=== PATIENT | female | born 1935 | race African-American/Black ===

== ENCOUNTER 2017-09-17 14:11 | Inpatient (IN) | payer MEDICARE, MEDICAID ==
[~2017-09-17] VITALS: Ht 152.4 cm; Wt 51.3 kg
[2017-09-17 14:32] VITALS: BP 98/54
[2017-09-17 16:05] LABS: BASOPHILS % (AUTO) 1.1 % (0.0-2.0); EOSINOPHILS % (AUTO) 0.9 % (0.0-3.0); LYMPHOCYTES % (AUTO) 21.6 % (20.0-45.0); MEAN CORPUSCULAR HEMOGLOBIN 27.8 PG (27.0-31.0); MEAN CORPUSCULAR HGB CONC 32.1 G/DL (32.0-36.0); MEAN CORPUSCULAR VOLUME 87 FL (80-99); MEAN PLATELET VOLUME 7.7 FL (6.5-10.1); NEUTROPHILS % (AUTO) 67.4 % (45.0-75.0); PLATELET COUNT 213 K/UL (150-450); RED BLOOD COUNT 4.61 M/UL (4.20-5.40); RED CELL DISTRIBUTION WIDTH 12.2 % (11.6-14.8); WHITE BLOOD COUNT 6.2 K/UL (4.8-10.8)
[2017-09-17 16:08] LABS: APPEARANCE,URINE CLEAR; KETONES,URINE NEGATIVE (NEGATIVE); LEUKOCYTE ESTERASE ,URINE NEGATIVE (NEGATIVE); NITRITE,URINE NEGATIVE (NEGATIVE); PH,URINE 5 (4.5-8.0); PROTEIN,URINE 2+ (NEGATIVE); UROBILINOGEN,URINE NORMAL MG/DL (0.0-1.0)
[2017-09-17 16:10] LABS: ANION GAP 10 mmol/L (5-15); CALCIUM 6.9 MG/DL (8.5-10.1); CARBON DIOXIDE 22 MMOL/L (21-32); CHLORIDE 112 MMOL/L (98-107); CREATININE 2.1 MG/DL (0.55-1.30); POTASSIUM 3.6 MMOL/L (3.5-5.1); SODIUM 144 MMOL/L (136-145)
[2017-09-17 16:23] LABS: ALANINE AMINOTRANSFERASE 19 U/L (12-78); ALBUMIN/GLOBULIN RATIO 0.7 (1.0-2.7); ASPARTATE AMINO TRANSFERASE 32 U/L (15-37); CKMB 10.3 NG/ML (0.0-3.6); TOTAL PROTEIN 4.9 G/DL (6.4-8.2)
[2017-09-17] MEDS ORDERED: QUINAPRIL HCL20 MG PO (16:27)
[2017-09-17] MEDS ORDERED: AMLODIPINE BES2.5 MG ORAL (16:27)
[2017-09-17 16:29] LABS: BACTERIA,URINE FEW /HPF; SQUAMOUS EPITHELIAL CELL,UR FEW /LPF (NONE/OCC); WBC,URINE 0-2 /HPF (0 - 2)
[2017-09-17 16:32] VITALS: BP 103/69
--- NOTE | 2017-09-17 16:45 | Emergency Room Report ---
History of Present Illness General Chief Complaint: Generalized Weakness Source: Patient, Family Member Present Illness HPI 82-year-old female brought in with son from home for weakness of one week. As per weakness patient's son states low energy. Patient has not been eating or drinking enough water. Has history of high blood pressure takes 2 medications, no other medical problems. Denies chest pain, shortness of breath, abdominal pain, urinary complaints, fever or chills. Denies previous stroke, heart attack. Patient History Past Medical History: HTN Past Surgical History: none Social History: Denies: smoking, alcohol use, drug use Last Menstrual Period: na Immunizations: UTD Reviewed Nursing Documentation: PMH: Agreed, PSxH: Agreed Nursing Documentation-PMH Past Medical History: No History, Except For Hx Cardiac Problems: Yes - hjypotension Hx Pacemaker: Yes History Of Psychiatric Problem: Yes - alzheimers Review of Systems All Other Systems: negative except mentioned in HPI Physical Exam Vital Signs Date Time Temp Pulse Resp B/P (MAP) Pulse Ox O2 Delivery O2 Flow Rate FiO2 09/17/17 14:22 98.1 88 20 98/54 97 Room Air Sp02 EP Interpretation: reviewed, normal General Appearance: normal inspection, well appearing, no apparent distress, alert, GCS 15, non-toxic Head: normocephalic, atraumatic Eyes: bilateral eye PERRL, bilateral eye EOMI ENT: normal ENT inspection, hearing grossly normal, normal voice Neck: normal inspection, full range of motion, supple, no bony tend Respiratory: normal inspection, lungs clear, normal breath sounds, no respiratory distress, no retraction, no wheezing Cardiovascular #1: regular rate, rhythm, no edema Gastrointestinal: normal inspection, normal bowel sounds, non tender, soft, no guarding, no hernia Genitourinary: no CVA tenderness Musculoskeletal: normal inspection, back normal, normal range of motion, Dary' s Sign negative Neurologic: normal inspection, alert, oriented x3, responsive, clam treader III-XII nml as tested, motor strength/tone normal, speech normal Psychiatric: normal inspection, judgement/insight normal, mood/affect normal Skin: normal inspection, normal color, no rash Medical Decision Making Medicare Attestation I Francisco Javier Dominguez MD hereby attest that the medical record entry for date of service, 09/17/2017 accurately reflects signatures/notations that I made in my capacity as MD when I treated/diagnosed the above listed Medicare beneficiary. I attest that this information is true, accurate and complete to the best of my knowledge. I understand that any falsification, omission, or concealment of material fact may subject me to administrative, civil, or criminal liability. This patient warrants hospital admission for extreme of age and has a condition that cannot be treated as outpatient. Diagnostic Impression: Primary Impression: Episode of generalized weakness Additional Impressions: RACHELE (acute kidney injury) Dehydration ER Course 82-year-old female with weakness likely due to dehydration Lab significant only for acute kidney injury She otherwise well-appearing, has dementia Complaints Labs otherwise normal No UTI Was started on gentle hydration and ER Endorsed to Dr. Yarbrough for panel admission for [facility] bed at 4:45 PM EKG Diagnostic Results Rate: other - ventricular paced ST Segments: no acute changes ASA given to the pt in ED: No Rhythm Strip Diag. Results EP Interpretation: yes Rate: 77 Rhythm: NSR, no PVC's, no ectopy Chest X-Ray Diagnostic Results Chest X-Ray Diagnostic Results : Chest X-Ray Ordered: Yes # of Views/Limited/Complete: 1 View Indication: Other - weakness EP Interpretation: Yes Interpretation: no consolidation, no effusion, no pneumothorax, no acute cardiopulmonary disease Impression: No acute disease Electronically Signed by: Dr Francisco Javier Dominguez MD Last Vital Signs Date Time Temp Pulse Resp B/P (MAP) Pulse Ox O2 Delivery O2 Flow Rate FiO2 09/17/17 16:32 98.4 73 16 103/69 100 Room Air Status: improved Disposition: ADMITTED INPATIENT Condition: Stable Referrals: NON PHYSICIAN (PCP) FRANCISCO JAVIER DOMINGUEZ M.D. Sep 17, 2017 16:44
--- NOTE | 2017-09-17 16:47 | Diagnostic Imaging Report ---
Indication: Cough Technique: One view of the chest Comparison: none Findings: Lungs and pleural spaces are clear. Heart size is normal. There is a left chest bifocal pacemaker. There is cervical spine fusion hardware noted Impression: No acute process
[2017-09-17 17:49] VITALS: BP 121/71
[2017-09-17 18:37] VITALS: BP 130/58
[2017-09-17] MEDS ORDERED: LORazepam Inj 2mg/ml 1ml IV PRN (19:30)
[2017-09-17] MEDS ORDERED: Morphine Sulfate 2mg/ml Inj IVP PRN (19:30)
[2017-09-17] MEDS ORDERED: Miralax 17gm pkt ORAL PRN (19:30)
[2017-09-17] MEDS ORDERED: Mylanta II UD 30ml ORAL PRN (19:30)
[2017-09-17] MEDS ORDERED: Zolpidem 5mg tab ORAL PRN (19:30)
[2017-09-17 20:00] VITALS: BP 109/73
[2017-09-17 21:02] LABS: ALANINE AMINOTRANSFERASE 28 U/L (12-78); ALBUMIN/GLOBULIN RATIO 0.8 (1.0-2.7); ANION GAP 8 mmol/L (5-15); APPEARANCE,URINE CLEAR; ASPARTATE AMINO TRANSFERASE 47 U/L (15-37); CALCIUM 9.3 MG/DL (8.5-10.1); CARBON DIOXIDE 29 MMOL/L (21-32); CHLORIDE 104 MMOL/L (98-107); CREATININE 2.5 MG/DL (0.55-1.30); FREE T3 2.2 pg/mL (2.3-4.2); KETONES,URINE NEGATIVE (NEGATIVE); LEUKOCYTE ESTERASE ,URINE 1+ (NEGATIVE); MAGNESIUM 2.6 MG/DL (1.8-2.4); NITRITE,URINE NEGATIVE (NEGATIVE); PH,URINE 5 (4.5-8.0); PHOSPHORUS 4.2 MG/DL (2.5-4.9); POTASSIUM 4.7 MMOL/L (3.5-5.1); PROTEIN,URINE 1+ (NEGATIVE); SODIUM 141 MMOL/L (136-145); TOTAL PROTEIN 6.5 G/DL (6.4-8.2); URIC ACID 6.7 MG/DL (2.6-7.2); UROBILINOGEN,URINE NORMAL MG/DL (0.0-1.0)
[2017-09-17 21:11] LABS: BACTERIA,URINE FEW /HPF; OSMOLALITY SERUM 326 mOsm/kg (297-317); SQUAMOUS EPITHELIAL CELL,UR FEW /LPF (NONE/OCC)
[2017-09-17] MEDS: Heparin 5000 units/ml inj SUBQ SCH (21:55)
[2017-09-18] VITALS: BP 123/74
[2017-09-18 04:15] VITALS: BP 137/69
[2017-09-18 08:00] VITALS: BP 120/73
[2017-09-18] MEDS: Heparin 5000 units/ml inj SUBQ SCH ×2 (09:15→21:33)
[2017-09-18 09:44] LABS: BASOPHILS % (AUTO) 1.4 % (0.0-2.0); EOSINOPHILS % (AUTO) 1.3 % (0.0-3.0); LYMPHOCYTES % (AUTO) 21.9 % (20.0-45.0); MEAN CORPUSCULAR HEMOGLOBIN 27.2 PG (27.0-31.0); MEAN CORPUSCULAR HGB CONC 31.5 G/DL (32.0-36.0); MEAN CORPUSCULAR VOLUME 86 FL (80-99); MEAN PLATELET VOLUME 7.4 FL (6.5-10.1); MONOCYTES % (AUTO) 7.8 % (1.0-10.0); NEUTROPHILS % (AUTO) 67.5 % (45.0-75.0); PLATELET COUNT 209 K/UL (150-450); RED BLOOD COUNT 4.18 M/UL (4.20-5.40); RED CELL DISTRIBUTION WIDTH 12.1 % (11.6-14.8); WHITE BLOOD COUNT 4.4 K/UL (4.8-10.8)
[2017-09-18 09:57] LABS: ALANINE AMINOTRANSFERASE 25 U/L (12-78); ALBUMIN/GLOBULIN RATIO 0.6 (1.0-2.7); ANION GAP 7 mmol/L (5-15); ASPARTATE AMINO TRANSFERASE 40 U/L (15-37); CALCIUM 9.1 MG/DL (8.5-10.1); CARBON DIOXIDE 29 MMOL/L (21-32); CHLORIDE 107 MMOL/L (98-107); CHOLESTEROL 163 MG/DL (< 200); CHOLESTEROL/HDL RATIO 2.5 (3.3-4.4); CREATININE 2.1 MG/DL (0.55-1.30); POTASSIUM 4.4 MMOL/L (3.5-5.1); SODIUM 143 MMOL/L (136-145); THYROID STIMULATING HORMONE 0.101 uiU/mL (0.358-3.740); TOTAL PROTEIN 6.5 G/DL (6.4-8.2)
[2017-09-18 10:28] LABS: HEMOGLOBIN A1C 6.1 % (4.3-6.0)
--- NOTE | 2017-09-18 10:40 | Diagnostic Imaging Report ---
Indication: Abnormal renal function tests Technique: Grayscale and duplex images of the kidneys, retroperitoneum, and bladder were obtained. Comparison:None Findings: Right kidney measures 7.7 cm in length. Left kidney measures 7.7 cm in length. Both kidneys demonstrate increased echogenicity. No hydronephrosis. There are bilateral renal cysts.. Normal inferior vena cava. Bladder is nearly empty, contains a Miller catheter. Impression: Small echogenic kidneys, consistent with medical renal disease Negative for hydronephrosis Bilateral renal cysts incidentally noted. Empty bladder with a Miller catheter
--- NOTE | 2017-09-18 11:35 | Wound Care Consultation ---
Wound Assessment Wound Assessment #1: Wound Number: 1 Wound Present on Admission: Yes New Wound: No Status Change of Wound: No Wound Location Body Site Modif: mid Wound Location Body Site: other - Sacrococcygeal Wound Type: pressure ulcer Kodi Test: Does not Kodi Pressure Ulcer Stage: Unstageable Wound Thickness: Full Thickness Wound Length: 11.5 Wound Width: 9.5 Wound Depth: utd Percent of Wound Falcon/Red: 10 Percent of Wound Bed Yellow/Wh: 50 Percent of Wound Purple/Maroon: 40 Wound Drainage Description: Serosanguineous Wound Drainage Amount: Moderate Wound Drainage Odor: None/Absent Tissue Surrounding Wound: DTI maroon in color Wound General Appearance: Reddened - yellow, Maroon, Draining Wound Assessment #2: Wound Number: 2 Wound Present on Admission: Yes New Wound: No Status Change of Wound: No Wound Location Body Site: perineal area Wound Type: chemical burn Kodi Test: Does not Kodi Percent of Wound Falcon/Red: 100 Wound Drainage Amount: None Wound Drainage Odor: None/Absent Tissue Surrounding Wound: Erythemic Wound General Appearance: Reddened Wound Comment #1 Sacrococcygeal unstageable pressure ulcer #2 Chemical burn on perineal area #3 Left lower leg with hemosiderin staining pigmentation #4 Check left 5th lateral toe callus formation Recommendation -Local wound care per protocol -Keep clean and dry -Turn and reposition -Optimize nutrition -Low air loss mattress -Heel protector on both heels -Offload both heels -Assess and f/u accordingly for any changes DOMINIC OLVERA RN Sep 18, 2017 11:35
[2017-09-18 12:00] VITALS: BP 114/78
--- NOTE | 2017-09-18 14:20 | Cardiology Report ---
APPROVED REPORT EKG Measurement Heart [id number] with v pacing
--- NOTE | 2017-09-18 15:02 | Consultation ---
Consult Note Consult Note asked to eval for renal failure 82-year-old female brought in with son from home for weakness of one week. As per weakness patient's son states low energy. Patient has not been eating or drinking enough water. Has history of high blood pressure takes 2 medications, no other medical problems. Denies chest pain, shortness of breath, abdominal pain, urinary complaints, fever or chills. Denies previous stroke, heart attack. Past Medical History: HTN Past Medical History: No History, Except For Hx Cardiac Problems: Yes - hypertension Hx Pacemaker: Yes History Of Psychiatric Problem: Yes - alzheimers examined- data reviewed Assessment/Plan Renal failure- appears prerenal. ? underlying CKD- DURAN : Small echogenic kidneys, consistent with medical renal disease Negative for hydronephrosis Bilateral renal cysts incidentally noted. Anemia Mild elevation A1c HTN Pacer OBS Plan: Hydrate- Anemia greene- Keep BP in check monitor renal parameters- per orders SHELBY DEY Sep 18, 2017 15:02
[2017-09-18 16:00] VITALS: BP 134/76
--- NOTE | 2017-09-18 18:29 | History and Physical ---
History of Present Illness General Date patient seen: Sep 17, 2017 Reason for Hospitalization: Generalized Weakness Present Illness HPI 82-year-old female with hx of HTN, psychosis brought in with son from home for weakness and low energy for one week. Denies chest pain, shortness of breath, abdominal pain, urinary complaints, fever or chills. Denies previous stroke, heart attack. Pt was diagnosed to have acute renal failure and admitted for further work up. Allergies: Coded Allergies: No Known Allergies (Unverified , 09/17/17) Medication History Scheduled Amlodipine Besylate* (Amlodipine Besylate*), 2.5 MG ORAL DAILY, (Reported) Miscellaneous Medications Quinapril Hcl (Quinapril Hcl), 20 MG PO, (Reported) Patient History Healthcare decision maker Resuscitation status Advanced Directive on File No Past Medical/Surgical History Past Medical/Surgical History: (1) Schizo-affective psychosis Review of Systems Constitutional: Reports: malaise, weakness Physical Exam General Appearance: cachetic Lines, tubes and drains: peripheral HEENT: normocephalic, atraumatic Neck: non-tender, normal alignment Respiratory/Chest: chest wall non-tender, lungs clear, normal breath sounds Cardiovascular/Chest: normal peripheral pulses, normal rate Abdomen: normal bowel sounds, non tender Genitourinary/Rectal: normal genital exam Extremities: normal range of motion Skin Exam: normal pigmentation Neurologic: electrical controls technician II-XII grossly normal Last 24 Hour Vital Signs Date Time Temp Pulse Resp B/P (MAP) Pulse Ox O2 Delivery O2 Flow Rate FiO2 09/18/17 16:00 98.1 75 19 134/76 100 Room Air 09/18/17 12:00 97.0 77 20 114/78 89 09/18/17 08:00 97.9 75 20 120/73 86 09/18/17 04:15 96.5 74 19 137/69 92 Room Air 09/18/17 04:00 Room Air 09/18/17 00:00 Room Air 09/18/17 00:00 98.2 57 20 123/74 100 Room Air 09/17/17 20:00 98.2 77 20 109/73 99 Room Air 09/17/17 20:00 Room Air 09/17/17 18:37 97.7 95 18 130/58 97 Laboratory Tests Test 09/17/17 20:15 09/18/17 09:20 Urine Color Pale yellow Urine Appearance Clear Urine pH 5 (4.5-8.0) Urine Specific [place] 1.010 (1.005-1.035) Urine Protein 1+ (NEGATIVE) H Urine Glucose (UA) Negative (NEGATIVE) Urine Ketones Negative (NEGATIVE) Urine Occult Blood 4+ (NEGATIVE) H Urine Nitrite Negative (NEGATIVE) Urine Bilirubin Negative (NEGATIVE) Urine Urobilinogen Normal MG/DL (0.0-1.0) Urine Leukocyte Esterase 1+ (NEGATIVE) H Urine RBC 5-10 /HPF (0 - 2) H Urine WBC 2-4 /HPF (0 - 2) Urine Squamous Epithelial Cells Few /LPF (NONE/OCC) Urine Bacteria Few /HPF (NONE) Urine Eosinophils None seen Urine Osmolality 397 mOsm/kg (429-449) L Urine Random Sodium 34 MEQ/L (20-110) Urine Random Chloride 47 mmol/L (55-125) L Urine Potassium Timed 27 mmol/L (12-62) Sodium Level 141 MMOL/L (136-145) 143 MMOL/L (136-145) Potassium Level 4.7 MMOL/L (3.5-5.1) 4.4 MMOL/L (3.5-5.1) Chloride Level 104 MMOL/L (98-107) 107 MMOL/L (98-107) Carbon Dioxide Level 29 MMOL/L (21-32) 29 MMOL/L (21-32) Anion Gap 8 mmol/L (5-15) 7 mmol/L (5-15) Blood Urea Nitrogen 94 mg/dL (7-18) H 82 mg/dL (7-18) H Creatinine 2.5 MG/DL (0.55-1.30) H 2.1 MG/DL (0.55-1.30) H Estimat Glomerular Filtration Rate mL/min (>60) mL/min (>60) Glucose Level 108 MG/DL (74-106) H 165 MG/DL (74-106) H Osmolality 326 mOsm/kg (297-317) H Uric Acid 6.7 MG/DL (2.6-7.2) Calcium Level 9.3 MG/DL (8.5-10.1) # 9.1 MG/DL (8.5-10.1) Phosphorus Level 4.2 MG/DL (2.5-4.9) Magnesium Level 2.6 MG/DL (1.8-2.4) H Total Bilirubin 0.4 MG/DL (0.2-1.0) 0.3 MG/DL (0.2-1.0) Aspartate Amino Transf (AST/SGOT) 47 U/L (15-37) H 40 U/L (15-37) H Alanine Aminotransferase (ALT/SGPT) 28 U/L (12-78) 25 U/L (12-78) Alkaline Phosphatase 80 U/L (46-116) 69 U/L (46-116) Total Creatine Kinase 557 U/L (26-308) H Total Protein 6.5 G/DL (6.4-8.2) # 6.5 G/DL (6.4-8.2) Albumin 2.8 G/DL (3.4-5.0) L 2.5 G/DL (3.4-5.0) L Globulin 3.7 g/dL 4.0 g/dL Albumin/Globulin Ratio 0.8 (1.0-2.7) L 0.6 (1.0-2.7) L Free Thyroxine 1.40 NG/DL (0.76-1.46) Free Triiodothyronine 2.2 pg/mL (2.3-4.2) L Cortisol Pending White Blood Count 4.4 K/UL (4.8-10.8) L Red Blood Count 4.18 M/UL (4.20-5.40) L Hemoglobin 11.3 G/DL (12.0-16.0) L Hematocrit 36.0 % (37.0-47.0) L Mean Corpuscular Volume 86 FL (80-99) Mean Corpuscular Hemoglobin 27.2 PG (27.0-31.0) Mean Corpuscular Hemoglobin Concent 31.5 G/DL (32.0-36.0) L Red Cell Distribution Width 12.1 % (11.6-14.8) Platelet Count 209 K/UL (150-450) Mean Platelet Volume 7.4 FL (6.5-10.1) Neutrophils (%) (Auto) 67.5 % (45.0-75.0) Lymphocytes (%) (Auto) 21.9 % (20.0-45.0) Monocytes (%) (Auto) 7.8 % (1.0-10.0) Eosinophils (%) (Auto) 1.3 % (0.0-3.0) Basophils (%) (Auto) 1.4 % (0.0-2.0) Hemoglobin A1c 6.1 % (4.3-6.0) H Triglycerides Level 33 MG/DL (30-150) Cholesterol Level 163 MG/DL (< 200) LDL Cholesterol 91 mg/dL (<100) HDL Cholesterol 66 MG/DL (40-60) H Cholesterol/HDL Ratio 2.5 (3.3-4.4) L Thyroid Stimulating Hormone (TSH) 0.101 uiU/mL (0.358-3.740) Height (Feet): 5 Weight (Pounds): 113 Medications Current Medications Medications (Trade) Dose Ordered Sig/Ty Route PRN Reason Start Time Stop Time Status Last Admin Dose Admin Acetaminophen (Tylenol) 650 mg Q4H PRN ORAL fever 09/17/17 19:30 10/17/17 19:29 Dextrose (Dextrose 50%) STAT PRN IV Hypoglycemia 09/17/17 19:30 10/17/17 19:29 Heparin Sodium (Porcine) (Heparin 5000 units/ml) 5,000 units EVERY 12 HOURS SUBQ 09/17/17 21:00 10/17/17 20:59 09/18/17 09:15 Lansoprazole (Prevacid) 30 mg DAILY ORAL 09/18/17 15:30 10/18/17 15:29 09/18/17 17:14 Lorazepam (Ativan 2mg/ml 1ml) 0.5 mg Q4H PRN IV For Anxiety 09/17/17 19:30 09/24/17 19:29 Morphine Sulfate (Morphine Sulfate) 1 mg Q4H PRN IVP Moderate to Severe Pain (4-10) 09/17/17 19:30 09/24/17 19:29 Ondansetron HCl (Zofran) 4 mg Q6H PRN IVP Nausea & Vomiting 09/17/17 19:30 10/17/17 19:29 Polyethylene Glycol (Miralax) 17 gm HSPRN PRN ORAL Constipation 09/17/17 19:30 10/17/17 19:29 Sodium Chloride 1,000 ml @ 75 mls/hr [id number] IV 09/18/17 15:30 10/18/17 15:29 Zolpidem Tartrate (Ambien) 5 mg HSPRN PRN ORAL Insomnia 09/17/17 19:30 09/24/17 19:29 Assessment/Plan Problem List: (1) ATN (acute tubular necrosis) ICD Codes: N17.0 - Acute kidney failure with tubular necrosis SNOMED: 68089172 (2) Hypertension ICD Codes: I10 - Essential (primary) hypertension SNOMED: 76078518 (3) Advanced dementia ICD Codes: F03.90 - Unspecified dementia without behavioral disturbance SNOMED: 82701543 (4) Schizo-affective psychosis ICD Codes: F25.9 - Schizoaffective disorder, unspecified SNOMED: 47449035 (5) Severe protein-calorie malnutrition ICD Codes: E43 - Unspecified severe protein-calorie malnutrition SNOMED: 843792965 Assessment/Plan iv fluids renal studies calorie count pt/ot social service consult psych consult MIREILLE KELLY Sep 18, 2017 18:29
--- NOTE | 2017-09-18 18:33 | Pulmonology Progress Note ---
Assessment/Plan Problems: (1) ATN (acute tubular necrosis) (2) Hypertension (3) Advanced dementia (4) Schizo-affective psychosis (5) Severe protein-calorie malnutrition Assessment/Plan renal studies noticed renal us reviewed social service for home safety swallow study and calorie count Subjective ROS Limited/Unobtainable: No Interval Events: confused. seeing people in the room Constitutional: Reports: no symptoms HEENT: Repors: no symptoms Allergies: Coded Allergies: No Known Allergies (Unverified , 09/17/17) Objective Last 24 Hour Vital Signs Date Time Temp Pulse Resp B/P (MAP) Pulse Ox O2 Delivery O2 Flow Rate FiO2 09/18/17 16:00 98.1 75 19 134/76 100 Room Air 09/18/17 12:00 97.0 77 20 114/78 89 09/18/17 08:00 97.9 75 20 120/73 86 09/18/17 04:15 96.5 74 19 137/69 92 Room Air 09/18/17 04:00 Room Air 09/18/17 00:00 Room Air 09/18/17 00:00 98.2 57 20 123/74 100 Room Air 09/17/17 20:00 98.2 77 20 109/73 99 Room Air 09/17/17 20:00 Room Air 09/17/17 18:37 97.7 95 18 130/58 97 General Appearance: cachetic HEENT: normocephalic, atraumatic Respiratory/Chest: chest wall non-tender, lungs clear Cardiovascular: normal peripheral pulses Extremities: no cyanosis Skin: no lesions Neurologic/Psychiatric: no motor/sensory deficits Laboratory Tests 09/17/17 20:15: Urine Color Pale yellow, Urine Appearance Clear, Urine pH 5, Urine Specific [place] 1.010, Urine Protein 1+H, Urine Glucose (UA) Negative, Urine Ketones Negative, Urine Occult Blood 4+H, Urine Nitrite Negative, Urine Bilirubin Negative, Urine Urobilinogen Normal, Urine Leukocyte Esterase 1+H, Urine RBC 5- 10H, Urine WBC 2-4, Urine Squamous Epithelial Cells Few, Urine Bacteria Few, Urine Eosinophils None seen, Urine Osmolality 397L, Urine Random Sodium 34, Urine Random Chloride 47L, Urine Potassium Timed 27, Sodium Level 141, Potassium Level 4.7, Chloride Level 104, Carbon Dioxide Level 29, Anion Gap 8, Blood Urea Nitrogen 94H, Creatinine 2.5H, Estimat Glomerular Filtration Rate , Glucose Level 108H, Osmolality 326H, Uric Acid 6.7, Calcium Level 9.3#, Phosphorus Level 4.2, Magnesium Level 2.6H, Total Bilirubin 0.4, Aspartate Amino Transf (AST/SGOT) 47H, Alanine Aminotransferase (ALT/SGPT) 28, Alkaline Phosphatase 80, Total Creatine Kinase 557H, Total Protein 6.5#, Albumin 2.8L, Globulin 3.7, Albumin/Globulin Ratio 0.8L, Free Thyroxine 1.40, Free Triiodothyronine 2.2L, Cortisol [Pending] 09/18/17 09:20: Sodium Level 143, Potassium Level 4.4, Chloride Level 107, Carbon Dioxide Level 29, Anion Gap 7, Blood Urea Nitrogen 82H, Creatinine 2.1H, Estimat Glomerular Filtration Rate , Glucose Level 165H, Calcium Level 9.1, Total Bilirubin 0.3, Aspartate Amino Transf (AST/SGOT) 40H, Alanine Aminotransferase (ALT/SGPT) 25, Alkaline Phosphatase 69, Total Protein 6.5, Albumin 2.5L, Globulin 4.0, Albumin/ Globulin Ratio 0.6L, White Blood Count 4.4L, Red Blood Count 4.18L, Hemoglobin 11.3L, Hematocrit 36.0L, Mean Corpuscular Volume 86, Mean Corpuscular Hemoglobin 27.2, Mean Corpuscular Hemoglobin Concent 31.5L, Red Cell Distribution Width 12.1, Platelet Count 209, Mean Platelet Volume 7.4, Neutrophils (%) (Auto) 67.5, Lymphocytes (%) (Auto) 21.9, Monocytes (%) (Auto) 7.8, Eosinophils (%) (Auto) 1.3, Basophils (%) (Auto) 1.4, Hemoglobin A1c 6.1H, Triglycerides Level 33, Cholesterol Level 163, LDL Cholesterol 91, HDL Cholesterol 66H, Cholesterol/HDL Ratio 2.5L, Thyroid Stimulating Hormone (TSH) 0.101L Current Medications Medications (Trade) Dose Ordered Sig/Ty Route PRN Reason Start Time Stop Time Status Last Admin Dose Admin Acetaminophen (Tylenol) 650 mg Q4H PRN ORAL fever 09/17/17 19:30 10/17/17 19:29 Dextrose (Dextrose 50%) STAT PRN IV Hypoglycemia 09/17/17 19:30 10/17/17 19:29 Heparin Sodium (Porcine) (Heparin 5000 units/ml) 5,000 units EVERY 12 HOURS SUBQ 09/17/17 21:00 10/17/17 20:59 09/18/17 09:15 Lansoprazole (Prevacid) 30 mg DAILY ORAL 09/18/17 15:30 10/18/17 15:29 09/18/17 17:14 Lorazepam (Ativan 2mg/ml 1ml) 0.5 mg Q4H PRN IV For Anxiety 09/17/17 19:30 09/24/17 19:29 Morphine Sulfate (Morphine Sulfate) 1 mg Q4H PRN IVP Moderate to Severe Pain (4-10) 09/17/17 19:30 09/24/17 19:29 Ondansetron HCl (Zofran) 4 mg Q6H PRN IVP Nausea & Vomiting 09/17/17 19:30 10/17/17 19:29 Polyethylene Glycol (Miralax) 17 gm HSPRN PRN ORAL Constipation 09/17/17 19:30 10/17/17 19:29 Sodium Chloride 1,000 ml @ 75 mls/hr [id number] IV 09/18/17 15:30 10/18/17 15:29 Zolpidem Tartrate (Ambien) 5 mg HSPRN PRN ORAL Insomnia 09/17/17 19:30 09/24/17 19:29 MIREILLE KELLY Sep 18, 2017 18:33
[2017-09-18 20:21] VITALS: BP 117/78
[2017-09-19] VITALS: BP 134/88
[2017-09-19 04:00] VITALS: BP 146/94
[2017-09-19 07:04] LABS: PROTHROMBIN TIME 10.2 SEC (9.30-11.50)
[2017-09-19 07:11] LABS: BASOPHILS % (AUTO) 0.6 % (0.0-2.0); EOSINOPHILS % (AUTO) 1.3 % (0.0-3.0); LYMPHOCYTES % (AUTO) 25.5 % (20.0-45.0); MEAN CORPUSCULAR HEMOGLOBIN 27.4 PG (27.0-31.0); MEAN CORPUSCULAR HGB CONC 31.5 G/DL (32.0-36.0); MEAN CORPUSCULAR VOLUME 87 FL (80-99); MEAN PLATELET VOLUME 7.6 FL (6.5-10.1); MONOCYTES % (AUTO) 9.9 % (1.0-10.0); NEUTROPHILS % (AUTO) 62.8 % (45.0-75.0); PLATELET COUNT 204 K/UL (150-450); RED BLOOD COUNT 4.03 M/UL (4.20-5.40); RED CELL DISTRIBUTION WIDTH 12.2 % (11.6-14.8); WHITE BLOOD COUNT 6.2 K/UL (4.8-10.8)
[2017-09-19 07:30] LABS: ALANINE AMINOTRANSFERASE 27 U/L (12-78); ALBUMIN/GLOBULIN RATIO 0.6 (1.0-2.7); ANION GAP 6 mmol/L (5-15); ASPARTATE AMINO TRANSFERASE 37 U/L (15-37); CARBON DIOXIDE 29 MMOL/L (21-32); CHLORIDE 110 MMOL/L (98-107); CREATININE 1.6 MG/DL (0.55-1.30); CRP QUANT 3.4 mg/dL (0.00-0.90); FERRITIN 646 NG/ML (8-388); MAGNESIUM 2.1 MG/DL (1.8-2.4); PHOSPHORUS 3.1 MG/DL (2.5-4.9); POTASSIUM 4.9 MMOL/L (3.5-5.1); SODIUM 145 MMOL/L (136-145); TOTAL PROTEIN 6.6 G/DL (6.4-8.2); URIC ACID 5.5 MG/DL (2.6-7.2)
[2017-09-19 08:04] LABS: FOLIC ACID 18.6 NG/ML (8.6-58.9); IRON 80 ug/dL (50-175); TOTAL IRON BINDING CAPACITY 187 ug/dL (250-450)
[2017-09-19 08:15] VITALS: BP 128/88
[2017-09-19 08:15] LABS: PATH BLOOD SMEAR/OMC SENT TO PATHOLOGIST
[2017-09-19 08:39] LABS: RETICULOCYTE COUNT 1.1 % (0.0-2.0)
[2017-09-19] MEDS: Heparin 5000 units/ml inj SUBQ SCH ×2 (08:52→20:36)
[2017-09-19 08:53] LABS: ERYTHROCYTE SEDIMENTATION RATE 40 MM/HR (0-42)
--- NOTE | 2017-09-19 10:02 | Nephrology Progress Note ---
Assessment/Plan Problem List: (1) Dehydration (2) Acute on chronic renal failure Assessment Renal failure- appears prerenal. ? underlying CKD- Cr lower DURAN : Small echogenic kidneys, consistent with medical renal disease Negative for hydronephrosis Bilateral renal cysts incidentally noted. Anemia Mild elevation A1c HTN Pacer OBS Plan Plan: Hydrate- Anemia greene- Keep BP in check monitor renal parameters- per orders ? Dc planning?? Objective Objective Last 24 Hour Vital Signs Date Time Temp Pulse Resp B/P (MAP) Pulse Ox O2 Delivery O2 Flow Rate FiO2 09/19/17 08:15 97.7 76 20 128/88 95 Room Air 09/19/17 04:00 97.7 53 17 146/94 95 09/19/17 04:00 Room Air 09/19/17 00:00 97.5 71 17 134/88 97 09/19/17 00:00 Room Air 09/18/17 20:21 98.2 75 18 117/78 96 09/18/17 20:00 Room Air 09/18/17 16:00 98.1 75 19 134/76 100 Room Air 09/18/17 12:00 97.0 77 20 114/78 89 Laboratory Tests 09/19/17 05:55: White Blood Count 6.2, Red Blood Count 4.03L, Hemoglobin 11.0L, Hematocrit 35.1L , Mean Corpuscular Volume 87, Mean Corpuscular Hemoglobin 27.4, Mean Corpuscular Hemoglobin Concent 31.5L, Red Cell Distribution Width 12.2, Platelet Count 204, Mean Platelet Volume 7.6, Neutrophils (%) (Auto) 62.8, Lymphocytes (%) (Auto) 25.5, Monocytes (%) (Auto) 9.9, Eosinophils (%) (Auto) 1.3, Basophils (%) (Auto) 0.6, Erythrocyte Sedimentation Rate 40, Reticulocyte Count 1.1, Prothrombin Time 10.2, Prothromb Time International Ratio 1.0, Activated Partial Thromboplast Time 28, Sodium Level 145, Potassium Level 4.9, Chloride Level 110H, Carbon Dioxide Level 29, Anion Gap 6, Blood Urea Nitrogen 72H, Creatinine 1.6H, Estimat Glomerular Filtration Rate , Glucose Level 83, Uric Acid 5.5, Calcium Level 9.0, Phosphorus Level 3.1, Magnesium Level 2.1, Iron Level 80, Total Iron Binding Capacity 187L, Percent Iron Saturation 43, Unsaturated Iron Binding 107L, Ferritin 646H, Total Bilirubin 0.4, Gamma Glutamyl Transpeptidase 16, Aspartate Amino Transf (AST/SGOT) 37, Alanine Aminotransferase (ALT/SGPT) 27, Alkaline Phosphatase 72, Lactate Dehydrogenase 196, Total Creatine Kinase 258, Troponin I 0.018, C-Reactive Protein, Quantitative 3.4H, Pro-B-Type Natriuretic Peptide 669H, Total Protein 6.6, Albumin 2.6L, Globulin 4.0, Albumin/Globulin Ratio 0.6L, Vitamin B12 Level 1017H , Folate 18.6 09/19/17 06:00: Urine Eosinophils None seen, Urine Random Sodium 73 Height (Feet): 5 Weight (Pounds): 113 General Appearance: no apparent distress Cardiovascular: normal rate, pacemaker/AICD Respiratory/Chest: decreased breath sounds Abdomen: soft Objective no change SHELBY DEY Sep 19, 2017 10:02
[2017-09-19 12:13] VITALS: BP 126/84
[2017-09-19 13:16] LABS: ANISOCYTOSIS 1+; BAND NEUTROPHILS % (MANUAL) 0 % (0-8); BASOPHILS % (MANUAL) 1 % (0-2); EOSINOPHILS % (MANUAL) 1 % (0-3); HYPOCHROMASIA 1+; LYMPHOCYTES % (MANUAL) 24 % (20-45); NEUTROPHILS % (MANUAL) 64 % (45-75); PLATELET ESTIMATE ADEQUATE; PLATELET MORPHOLOGY NORMAL; TOTAL CELLS COUNTED 100
--- NOTE | 2017-09-19 15:32 | Cardiology Report ---
APPROVED REPORT EXAM: Two-dimensional and M-mode echocardiogram with Doppler and color Doppler. INDICATION Congestive Heart Failure M-Mode DIMENSIONS IVSd1.4 (0.7-1.1cm)Left Atrium (MM)3.7 (1.6-4.0cm) LVDd4.5 (3.5-5.6cm)Aortic Root2.4 (2.0-3.7cm) PWd0.9 (0.7-1.1cm)Aortic Cusp Exc.1.6 (1.5-2.0cm) LVDs2.5 (2.5-4.0cm) PWs1.4 cm Normal left ventricular chamber size, systolic function and wall motion. Left ventricular ejection fraction estimated to be 60-65%. Mild left ventricular hypertrophy. No evidence of pericardial or pleural effusion. Mild bi-atrial enlargement by 2D. Focal aortic valve sclerosis with adequate cusp excursion. Thickened mitral valve leaflets with normal excursion. Mild mitral annulus and aortic root calcification. Pulmonic valve is well visualized. Normal tricuspid valve structure. IVC is normal in size and collapsible with respiration. Probable pacemaker wire present in the right side chambers. A color flow and spectral Doppler study was performed and revealed: No aortic regurgitation. Mild mitral regurgitation. Mitral inflow velocities indicates possible pseudo normalization pattern implying significant left ventricular diastolic dysfunction. Mild tricuspid regurgitation. Tricuspid systolic velocities suggests peak right ventricular systolic pressure of 24mmHg
[2017-09-19 16:00] VITALS: BP 145/80
--- NOTE | 2017-09-19 16:51 | Pulmonology Progress Note ---
Assessment/Plan Problems: (1) ATN (acute tubular necrosis) (2) Hypertension (3) Advanced dementia (4) Schizo-affective psychosis (5) Severe protein-calorie malnutrition Assessment/Plan renal studies noticed renal us reviewed swallow study and calorie count bun/creatinine decreasing d/w Ap, pts son who agreed with hospice care upon return home Subjective ROS Limited/Unobtainable: No Interval Events: comfortabley resting, the son, "ap" at bed site Allergies: Coded Allergies: No Known Allergies (Unverified , 09/17/17) Objective Last 24 Hour Vital Signs Date Time Temp Pulse Resp B/P (MAP) Pulse Ox O2 Delivery O2 Flow Rate FiO2 09/19/17 16:00 97.0 76 20 145/80 99 Room Air 09/19/17 12:13 97.5 75 19 126/84 99 Room Air 09/19/17 08:15 97.7 76 20 128/88 95 Room Air 09/19/17 04:00 97.7 53 17 146/94 95 09/19/17 04:00 Room Air 09/19/17 00:00 97.5 71 17 134/88 97 09/19/17 00:00 Room Air 09/18/17 20:21 98.2 75 18 117/78 96 09/18/17 20:00 Room Air Intake and Output 09/19/17 09/20/17 19:00 07:00 Intake Total 480 ml Balance 480 ml Intake Oral 480 ml General Appearance: cachetic HEENT: normocephalic, atraumatic Respiratory/Chest: chest wall non-tender, lungs clear Cardiovascular: normal rate, no JVD Abdomen: normal bowel sounds, no organomegaly Genitourinary: normal external genitalia Extremities: no clubbing Skin: no rash Microbiology Date/Time Source Procedure Growth Status 09/19/17 06:00 Wound Gram Stain - Final Resulted 09/19/17 06:00 Wound Wound Culture Pending Resulted Laboratory Tests 09/19/17 05:55: White Blood Count 6.2, Red Blood Count 4.03L, Hemoglobin 11.0L, Hematocrit 35.1L , Mean Corpuscular Volume 87, Mean Corpuscular Hemoglobin 27.4, Mean Corpuscular Hemoglobin Concent 31.5L, Red Cell Distribution Width 12.2, Platelet Count 204, Mean Platelet Volume 7.6, Neutrophils (%) (Auto) 62.8, Lymphocytes (%) (Auto) 25.5, Monocytes (%) (Auto) 9.9, Eosinophils (%) (Auto) 1.3, Basophils (%) (Auto) 0.6, Differential Total Cells Counted 100, Neutrophils % (Manual) 64, Lymphocytes % (Manual) 24, Monocytes % (Manual) 10, Eosinophils % (Manual) 1, Basophils % (Manual) 1, Band Neutrophils 0, Platelet Estimate Adequate, Platelet Morphology Normal, Hypochromasia 1+, Anisocytosis 1+ , Erythrocyte Sedimentation Rate 40, Reticulocyte Count 1.1, Prothrombin Time 10.2, Prothromb Time International Ratio 1.0, Activated Partial Thromboplast Time 28, Sodium Level 145, Potassium Level 4.9, Chloride Level 110H, Carbon Dioxide Level 29, Anion Gap 6, Blood Urea Nitrogen 72H, Creatinine 1.6H, Estimat Glomerular Filtration Rate , Glucose Level 83, Uric Acid 5.5, Calcium Level 9.0, Phosphorus Level 3.1, Magnesium Level 2.1, Iron Level 80, Total Iron Binding Capacity 187L, Percent Iron Saturation 43, Unsaturated Iron Binding 107L , Ferritin 646H, Total Bilirubin 0.4, Gamma Glutamyl Transpeptidase 16, Aspartate Amino Transf (AST/SGOT) 37, Alanine Aminotransferase (ALT/SGPT) 27, Alkaline Phosphatase 72, Lactate Dehydrogenase 196, Total Creatine Kinase 258, Troponin I 0.018, C-Reactive Protein, Quantitative 3.4H, Pro-B-Type Natriuretic Peptide 669H, Total Protein 6.6, Albumin 2.6L, Globulin 4.0, Albumin/Globulin Ratio 0.6L, Vitamin B12 Level 1017H, Folate 18.6 09/19/17 06:00: Urine Eosinophils None seen, Urine Random Sodium 73 Current Medications Medications (Trade) Dose Ordered Sig/Ty Route PRN Reason Start Time Stop Time Status Last Admin Dose Admin Acetaminophen (Tylenol) 650 mg Q4H PRN ORAL fever 09/17/17 19:30 10/17/17 19:29 Dextrose (Dextrose 50%) STAT PRN IV Hypoglycemia 09/17/17 19:30 10/17/17 19:29 Heparin Sodium (Porcine) (Heparin 5000 units/ml) 5,000 units EVERY 12 HOURS SUBQ 09/17/17 21:00 10/17/17 20:59 09/19/17 08:52 Lansoprazole (Prevacid) 30 mg DAILY ORAL 09/18/17 15:30 10/18/17 15:29 09/19/17 08:53 Lorazepam (Ativan 2mg/ml 1ml) 0.5 mg Q4H PRN IV For Anxiety 09/17/17 19:30 09/24/17 19:29 Morphine Sulfate (Morphine Sulfate) 1 mg Q4H PRN IVP Moderate to Severe Pain (4-10) 09/17/17 19:30 09/24/17 19:29 Ondansetron HCl (Zofran) 4 mg Q6H PRN IVP Nausea & Vomiting 09/17/17 19:30 10/17/17 19:29 Polyethylene Glycol (Miralax) 17 gm HSPRN PRN ORAL Constipation 09/17/17 19:30 10/17/17 19:29 Sodium Chloride 1,000 ml @ 50 mls/hr Q20H IV 09/19/17 10:30 10/19/17 10:29 09/19/17 10:30 Zolpidem Tartrate (Ambien) 5 mg HSPRN PRN ORAL Insomnia 09/17/17 19:30 09/24/17 19:29 MIREILLE KELLY Sep 19, 2017 16:51
[2017-09-19 20:00] VITALS: BP 141/84
[2017-09-19] MEDS ORDERED: Haloperidol 5mg/ml Inj IM PRN (20:30)
[2017-09-20] VITALS: BP 116/76
[2017-09-20 04:00] VITALS: BP 119/76
[2017-09-20 07:05] LABS: BASOPHILS % (AUTO) 1.1 % (0.0-2.0); EOSINOPHILS % (AUTO) 1.3 % (0.0-3.0); LYMPHOCYTES % (AUTO) 22.6 % (20.0-45.0); MEAN CORPUSCULAR HEMOGLOBIN 27.7 PG (27.0-31.0); MEAN CORPUSCULAR HGB CONC 31.9 G/DL (32.0-36.0); MEAN CORPUSCULAR VOLUME 87 FL (80-99); MONOCYTES % (AUTO) 9.3 % (1.0-10.0); NEUTROPHILS % (AUTO) 65.6 % (45.0-75.0); PLATELET COUNT 204 K/UL (150-450); RED BLOOD COUNT 3.89 M/UL (4.20-5.40); RED CELL DISTRIBUTION WIDTH 12.2 % (11.6-14.8); WHITE BLOOD COUNT 6.9 K/UL (4.8-10.8)
[2017-09-20 08:38] VITALS: BP 160/83
[2017-09-20 08:40] LABS: ALANINE AMINOTRANSFERASE 25 U/L (12-78); ALBUMIN/GLOBULIN RATIO 0.6 (1.0-2.7); ANION GAP 3 mmol/L (5-15); ASPARTATE AMINO TRANSFERASE 32 U/L (15-37); CALCIUM 8.9 MG/DL (8.5-10.1); CARBON DIOXIDE 30 MMOL/L (21-32); CHLORIDE 111 MMOL/L (98-107); CREATININE 1.3 MG/DL (0.55-1.30); MAGNESIUM 1.8 MG/DL (1.8-2.4); PHOSPHORUS 2.7 MG/DL (2.5-4.9); POTASSIUM 5.1 MMOL/L (3.5-5.1); SODIUM 144 MMOL/L (136-145); TOTAL PROTEIN 6.3 G/DL (6.4-8.2)
[2017-09-20] MEDS: Heparin 5000 units/ml inj SUBQ SCH (10:28)
[2017-09-20 11:26] LABS: OTHERS PATHOLOGIST COMMENT
--- NOTE | 2017-09-20 12:01 | Nephrology Progress Note ---
Assessment/Plan Problem List: (1) Dehydration (2) Acute on chronic renal failure Assessment Renal failure- appears prerenal. ? underlying CKD- Cr lower DURAN : Small echogenic kidneys, consistent with medical renal disease Negative for hydronephrosis Bilateral renal cysts incidentally noted. Anemia Mild elevation A1c HTN Pacer OBS Plan Plan: DC Hydrate- Anemia greene- Keep BP in check monitor renal parameters- per orders ? Dc planning?? Subjective ROS Limited/Unobtainable: No Constitutional: Reports: malaise Objective Objective Last 24 Hour Vital Signs Date Time Temp Pulse Resp B/P (MAP) Pulse Ox O2 Delivery O2 Flow Rate FiO2 09/20/17 08:38 98.2 74 20 160/83 96 09/20/17 08:12 96 Room Air 09/20/17 04:00 98.3 70 16 119/76 100 Room Air 09/20/17 00:00 98.6 75 18 116/76 100 Room Air 09/19/17 20:00 97.9 72 20 141/84 98 Room Air 09/19/17 20:00 Room Air 09/19/17 16:00 97.0 76 20 145/80 99 Room Air 09/19/17 12:13 97.5 75 19 126/84 99 Room Air Intake and Output 09/20/17 09/21/17 19:00 07:00 Intake Total 240 ml Balance 240 ml Intake Oral 240 ml Laboratory Tests 09/20/17 05:15: White Blood Count 6.9, Red Blood Count 3.89L, Hemoglobin 10.8L, Hematocrit 33.8L , Mean Corpuscular Volume 87, Mean Corpuscular Hemoglobin 27.7, Mean Corpuscular Hemoglobin Concent 31.9L, Red Cell Distribution Width 12.2, Platelet Count 204, Mean Platelet Volume 7.0, Neutrophils (%) (Auto) 65.6, Lymphocytes (%) (Auto) 22.6, Monocytes (%) (Auto) 9.3, Eosinophils (%) (Auto) 1.3, Basophils (%) (Auto) 1.1, Sodium Level 144, Potassium Level 5.1, Chloride Level 111H, Carbon Dioxide Level 30, Anion Gap 3L, Blood Urea Nitrogen 50H, Creatinine 1.3, Estimat Glomerular Filtration Rate , Glucose Level 83, Calcium Level 8.9, Phosphorus Level 2.7, Magnesium Level 1.8, Total Bilirubin 0.2, Aspartate Amino Transf (AST/SGOT) 32, Alanine Aminotransferase (ALT/SGPT) 25, Alkaline Phosphatase 71, Total Protein 6.3L, Albumin 2.4L, Globulin 3.9, Albumin /Globulin Ratio 0.6L 09/20/17 07:15: Urine Eosinophils None seen Height (Feet): 5 Weight (Pounds): 113 General Appearance: no apparent distress Objective no change SHELBY DEY Sep 20, 2017 12:01
[2017-09-20 12:44] VITALS: BP 150/62
[2017-09-20] MEDS ORDERED: NS 500ML ONE ×2 (13:40)
[2017-09-20 16:21] VITALS: BP 119/79
[2017-09-20] MEDS ORDERED: RISPERDAL1 MG ORAL (16:28)
--- NOTE | 2017-09-20 16:29 | Pulmonology Progress Note ---
Assessment/Plan Problems: (1) ATN (acute tubular necrosis) (2) Hypertension (3) Advanced dementia (4) Schizo-affective psychosis (5) Severe protein-calorie malnutrition Assessment/Plan renal studies noticed renal us reviewed swallow study and calorie count noted, at very high risk for aspiration. comfort feeding recommended d/w Joe, pts son who agreed with hospice care upon return home dc home to day with hospice Subjective ROS Limited/Unobtainable: No Interval Events: comfortable Allergies: Coded Allergies: No Known Allergies (Unverified , 09/17/17) Objective Last 24 Hour Vital Signs Date Time Temp Pulse Resp B/P (MAP) Pulse Ox O2 Delivery O2 Flow Rate FiO2 09/20/17 16:21 97.7 89 18 119/79 98 09/20/17 16:21 96 Room Air 09/20/17 12:44 97.8 75 20 150/62 96 09/20/17 08:38 98.2 74 20 160/83 96 09/20/17 08:12 96 Room Air 09/20/17 04:00 98.3 70 16 119/76 100 Room Air 09/20/17 00:00 98.6 75 18 116/76 100 Room Air 09/19/17 20:00 97.9 72 20 141/84 98 Room Air 09/19/17 20:00 Room Air Intake and Output 09/20/17 09/21/17 19:00 07:00 Intake Total 240 ml Balance 240 ml Intake Oral 240 ml General Appearance: cachetic HEENT: normocephalic, anicteric Respiratory/Chest: chest wall non-tender, normal breath sounds Breasts: no masses Cardiovascular: normal peripheral pulses Abdomen: normal bowel sounds, no organomegaly Extremities: no cyanosis, no clubbing Skin: no lesions Microbiology Date/Time Source Procedure Growth Status 09/19/17 06:00 Wound Gram Stain - Final Resulted 09/19/17 06:00 Wound Culture - Preliminary Gram Negative Bacillus 1 Gram Negative Bacillus 2 Strep Species, Gamma-Hemolytic Resulted Laboratory Tests 09/20/17 05:15: White Blood Count 6.9, Red Blood Count 3.89L, Hemoglobin 10.8L, Hematocrit 33.8L , Mean Corpuscular Volume 87, Mean Corpuscular Hemoglobin 27.7, Mean Corpuscular Hemoglobin Concent 31.9L, Red Cell Distribution Width 12.2, Platelet Count 204, Mean Platelet Volume 7.0, Neutrophils (%) (Auto) 65.6, Lymphocytes (%) (Auto) 22.6, Monocytes (%) (Auto) 9.3, Eosinophils (%) (Auto) 1.3, Basophils (%) (Auto) 1.1, Sodium Level 144, Potassium Level 5.1, Chloride Level 111H, Carbon Dioxide Level 30, Anion Gap 3L, Blood Urea Nitrogen 50H, Creatinine 1.3, Estimat Glomerular Filtration Rate , Glucose Level 83, Calcium Level 8.9, Phosphorus Level 2.7, Magnesium Level 1.8, Total Bilirubin 0.2, Aspartate Amino Transf (AST/SGOT) 32, Alanine Aminotransferase (ALT/SGPT) 25, Alkaline Phosphatase 71, Total Protein 6.3L, Albumin 2.4L, Globulin 3.9, Albumin /Globulin Ratio 0.6L 09/20/17 07:15: Urine Eosinophils None seen Current Medications Medications (Trade) Dose Ordered Sig/Ty Route PRN Reason Start Time Stop Time Status Last Admin Dose Admin Acetaminophen (Tylenol) 650 mg Q4H PRN ORAL fever 09/17/17 19:30 10/17/17 19:29 Dextrose (Dextrose 50%) STAT PRN IV Hypoglycemia 09/17/17 19:30 10/17/17 19:29 Haloperidol Lactate (Haldol) 5 mg Q6H PRN IM Agitation 09/19/17 20:30 10/19/17 20:29 Heparin Sodium (Porcine) (Heparin 5000 units/ml) 5,000 units EVERY 12 HOURS SUBQ 09/17/17 21:00 10/17/17 20:59 09/20/17 10:28 Lansoprazole (Prevacid) 30 mg DAILY ORAL 09/18/17 15:30 10/18/17 15:29 09/20/17 10:22 Lorazepam (Ativan 2mg/ml 1ml) 0.5 mg Q4H PRN IV For Anxiety 09/17/17 19:30 09/24/17 19:29 Morphine Sulfate (Morphine Sulfate) 1 mg Q4H PRN IVP Moderate to Severe Pain (4-10) 09/17/17 19:30 09/24/17 19:29 Ondansetron HCl (Zofran) 4 mg Q6H PRN IVP Nausea & Vomiting 09/17/17 19:30 10/17/17 19:29 Polyethylene Glycol (Miralax) 17 gm HSPRN PRN ORAL Constipation 09/17/17 19:30 10/17/17 19:29 Risperidone (RisperDAL) 1 mg BEDTIME ORAL 09/19/17 21:00 10/19/17 20:59 09/19/17 20:33 Zolpidem Tartrate (Ambien) 5 mg HSPRN PRN ORAL Insomnia 09/17/17 19:30 09/24/17 19:29 MIREILLE KELLY Sep 20, 2017 16:29
--- NOTE | 2017-09-20 23:20 | Consultation ---
History of Present Illness General Date patient seen: Sep 18, 2017 Chief Complaint: Generalized Weakness Present Illness HPI 82-year-old female brought in with son from home for weakness of one week. As per weakness patient's son states low energy. the pt was anxious and agitated and received meds Allergies: Coded Allergies: No Known Allergies (Unverified , 09/17/17) Medication History Scheduled Amlodipine Besylate* (Amlodipine Besylate*), 2.5 MG ORAL DAILY, (Reported) Risperidone* (Risperdal*), 1 MG ORAL BEDTIME Miscellaneous Medications Quinapril Hcl (Quinapril Hcl), 20 MG PO, (Reported) Patient History History Provided By: Patient, Medical Record, PMD Healthcare decision maker Resuscitation status Advanced Directive on File No Past Medical/Surgical History Past Medical/Surgical History: (1) Schizo-affective psychosis (2) ATN (acute tubular necrosis) (3) Hypertension (4) Advanced dementia (5) Severe protein-calorie malnutrition (6) Acute on chronic renal failure Review of Systems Psychiatric: Reports: prior hx, anxiety, depressed feelings, emotional problems Physical Exam General Appearance: alert, confused, agitated Last 24 Hour Vital Signs Date Time Temp Pulse Resp B/P (MAP) Pulse Ox O2 Delivery O2 Flow Rate FiO2 09/20/17 16:21 97.7 89 18 119/79 98 09/20/17 16:21 96 Room Air 09/20/17 12:44 97.8 75 20 150/62 96 09/20/17 08:38 98.2 74 20 160/83 96 09/20/17 08:12 96 Room Air 09/20/17 04:00 98.3 70 16 119/76 100 Room Air 09/20/17 00:00 98.6 75 18 116/76 100 Room Air Intake and Output 09/20/17 09/21/17 19:00 07:00 Intake Total 240 ml Output Total 400 ml Balance -160 ml Intake Oral 240 ml Output Urine Total 400 ml Laboratory Tests Test 09/20/17 05:15 09/20/17 07:15 White Blood Count 6.9 K/UL (4.8-10.8) Red Blood Count 3.89 M/UL (4.20-5.40) L Hemoglobin 10.8 G/DL (12.0-16.0) L Hematocrit 33.8 % (37.0-47.0) L Mean Corpuscular Volume 87 FL (80-99) Mean Corpuscular Hemoglobin 27.7 PG (27.0-31.0) Mean Corpuscular Hemoglobin Concent 31.9 G/DL (32.0-36.0) L Red Cell Distribution Width 12.2 % (11.6-14.8) Platelet Count 204 K/UL (150-450) Mean Platelet Volume 7.0 FL (6.5-10.1) Neutrophils (%) (Auto) 65.6 % (45.0-75.0) Lymphocytes (%) (Auto) 22.6 % (20.0-45.0) Monocytes (%) (Auto) 9.3 % (1.0-10.0) Eosinophils (%) (Auto) 1.3 % (0.0-3.0) Basophils (%) (Auto) 1.1 % (0.0-2.0) Sodium Level 144 MMOL/L (136-145) Potassium Level 5.1 MMOL/L (3.5-5.1) Chloride Level 111 MMOL/L (98-107) H Carbon Dioxide Level 30 MMOL/L (21-32) Anion Gap 3 mmol/L (5-15) L Blood Urea Nitrogen 50 mg/dL (7-18) H Creatinine 1.3 MG/DL (0.55-1.30) Estimat Glomerular Filtration Rate mL/min (>60) Glucose Level 83 MG/DL (74-106) Calcium Level 8.9 MG/DL (8.5-10.1) Phosphorus Level 2.7 MG/DL (2.5-4.9) Magnesium Level 1.8 MG/DL (1.8-2.4) Total Bilirubin 0.2 MG/DL (0.2-1.0) Aspartate Amino Transf (AST/SGOT) 32 U/L (15-37) Alanine Aminotransferase (ALT/SGPT) 25 U/L (12-78) Alkaline Phosphatase 71 U/L (46-116) Total Protein 6.3 G/DL (6.4-8.2) L Albumin 2.4 G/DL (3.4-5.0) L Globulin 3.9 g/dL Albumin/Globulin Ratio 0.6 (1.0-2.7) L Urine Eosinophils None seen Height (Feet): 5 Weight (Pounds): 113 Assessment/Plan Status: stable Assessment/Plan encephalopathy agitation -low dose antipsychotic Mingo Johnson M.D. Sep 20, 2017 23:20
--- NOTE | 2017-09-20 23:21 | General Progress Note ---
Assessment/Plan Status: stable, progressing Subjective Date patient seen: Sep 20, 2017 Neurologic/Psychiatric: Reports: anxiety, depressed, emotional problems Allergies: Coded Allergies: No Known Allergies (Unverified , 09/17/17) Objective Last 24 Hour Vital Signs Date Time Temp Pulse Resp B/P (MAP) Pulse Ox O2 Delivery O2 Flow Rate FiO2 09/20/17 16:21 97.7 89 18 119/79 98 09/20/17 16:21 96 Room Air 09/20/17 12:44 97.8 75 20 150/62 96 09/20/17 08:38 98.2 74 20 160/83 96 09/20/17 08:12 96 Room Air 09/20/17 04:00 98.3 70 16 119/76 100 Room Air 09/20/17 00:00 98.6 75 18 116/76 100 Room Air Intake and Output 09/20/17 09/21/17 19:00 07:00 Intake Total 240 ml Output Total 400 ml Balance -160 ml Intake Oral 240 ml Output Urine Total 400 ml Laboratory Tests 09/20/17 05:15: White Blood Count 6.9, Red Blood Count 3.89L, Hemoglobin 10.8L, Hematocrit 33.8L , Mean Corpuscular Volume 87, Mean Corpuscular Hemoglobin 27.7, Mean Corpuscular Hemoglobin Concent 31.9L, Red Cell Distribution Width 12.2, Platelet Count 204, Mean Platelet Volume 7.0, Neutrophils (%) (Auto) 65.6, Lymphocytes (%) (Auto) 22.6, Monocytes (%) (Auto) 9.3, Eosinophils (%) (Auto) 1.3, Basophils (%) (Auto) 1.1, Sodium Level 144, Potassium Level 5.1, Chloride Level 111H, Carbon Dioxide Level 30, Anion Gap 3L, Blood Urea Nitrogen 50H, Creatinine 1.3, Estimat Glomerular Filtration Rate , Glucose Level 83, Calcium Level 8.9, Phosphorus Level 2.7, Magnesium Level 1.8, Total Bilirubin 0.2, Aspartate Amino Transf (AST/SGOT) 32, Alanine Aminotransferase (ALT/SGPT) 25, Alkaline Phosphatase 71, Total Protein 6.3L, Albumin 2.4L, Globulin 3.9, Albumin /Globulin Ratio 0.6L 09/20/17 07:15: Urine Eosinophils None seen Height (Feet): 5 Weight (Pounds): 113 General Appearance: alert, confused, thin Neurologic: responsive, disoriented, depressed affect Mingo Johnson M.D. Sep 20, 2017 23:21
--- NOTE | 2017-09-20 23:21 | General Progress Note ---
Assessment/Plan Status: stable, progressing Subjective Date patient seen: Sep 19, 2017 Neurologic/Psychiatric: Reports: anxiety, depressed, emotional problems Allergies: Coded Allergies: No Known Allergies (Unverified , 09/17/17) Objective Last 24 Hour Vital Signs Date Time Temp Pulse Resp B/P (MAP) Pulse Ox O2 Delivery O2 Flow Rate FiO2 09/20/17 16:21 97.7 89 18 119/79 98 09/20/17 16:21 96 Room Air 09/20/17 12:44 97.8 75 20 150/62 96 09/20/17 08:38 98.2 74 20 160/83 96 09/20/17 08:12 96 Room Air 09/20/17 04:00 98.3 70 16 119/76 100 Room Air 09/20/17 00:00 98.6 75 18 116/76 100 Room Air Intake and Output 09/20/17 09/21/17 19:00 07:00 Intake Total 240 ml Output Total 400 ml Balance -160 ml Intake Oral 240 ml Output Urine Total 400 ml Laboratory Tests 09/20/17 05:15: White Blood Count 6.9, Red Blood Count 3.89L, Hemoglobin 10.8L, Hematocrit 33.8L , Mean Corpuscular Volume 87, Mean Corpuscular Hemoglobin 27.7, Mean Corpuscular Hemoglobin Concent 31.9L, Red Cell Distribution Width 12.2, Platelet Count 204, Mean Platelet Volume 7.0, Neutrophils (%) (Auto) 65.6, Lymphocytes (%) (Auto) 22.6, Monocytes (%) (Auto) 9.3, Eosinophils (%) (Auto) 1.3, Basophils (%) (Auto) 1.1, Sodium Level 144, Potassium Level 5.1, Chloride Level 111H, Carbon Dioxide Level 30, Anion Gap 3L, Blood Urea Nitrogen 50H, Creatinine 1.3, Estimat Glomerular Filtration Rate , Glucose Level 83, Calcium Level 8.9, Phosphorus Level 2.7, Magnesium Level 1.8, Total Bilirubin 0.2, Aspartate Amino Transf (AST/SGOT) 32, Alanine Aminotransferase (ALT/SGPT) 25, Alkaline Phosphatase 71, Total Protein 6.3L, Albumin 2.4L, Globulin 3.9, Albumin /Globulin Ratio 0.6L 09/20/17 07:15: Urine Eosinophils None seen Height (Feet): 5 Weight (Pounds): 113 General Appearance: no apparent distress, alert, confused Neurologic: disoriented, depressed affect Mingo Johnson M.D. Sep 20, 2017 23:21
--- NOTE | 2017-09-21 14:27 | Discharge Summary ---
Discharge Summary Hospital Course Date of Admission Sep 17, 2017 at 15:19 Date of Discharge Sep 20, 2017 at 19:30 Admitting Diagnosis weakness HPI Mindi Child is a 82 year old female who was admitted on Sep 17, 2017 at 15: 19 for Weakness Hospital Course [id number] Discharge Discharge Disposition Patient was discharged to Home with Hospice (50) Discharge Diagnoses: Caitlyn Rousseau NP Sep 21, 2017 14:27
--- NOTE | 2017-09-21 23:30 | Discharge Summary 2 SIG ---
DATE OF ADMISSION: 09/17/2017 DATE OF DISCHARGE: 09/20/2017 CONSULTANTS: 1. Mingo Johnson M.D. 2. Jordon Alvarado M.D. BRIEF HOSPITAL COURSE: The patient is an 82-year-old female with history of hypertension and psychosis, who was brought in from home by son due to weakness and low energy for one week. Denies chest pain, shortness of breath, abdominal pain, urinary complaints, fever, or chills. She has past medical history significant for hypertension. Denies previous stroke or heart attack. On evaluation at ED, laboratories showed acute kidney injury. Creatinine was 2.1. BUN was 77. Chest x-ray done showed no acute process. She was started on gentle IV hydration and was admitted to medical floor for dehydration, acute kidney injury, and generalized weakness. EKG was ventricular paced. She was seen by Dr. Alvarado. Renal failure appears to be prerenal with underlying chronic kidney disease. Ultrasound of the kidneys done showed small echogenic kidneys consistent with medical renal disease and negative for hydronephrosis with incidental findings of bilateral renal cysts. She was continued on IV hydration. Anemia workup done showed normal iron stores and elevated ferritin level. She underwent psychiatric evaluation. The patient was anxious and agitated. She was seen by Dr. Johnson and diagnosed with encephalopathy and agitation and was started on low-dose antipsychotics and Risperdal 1 mg at bedtime. She had an echocardiogram done with ejection fraction of 60% to 65%, mild left ventricular hypertrophy, mild mitral regurgitation, and mild tricuspid regurgitation. She had a swallow evaluation done and was assessed to have high risk of aspiration. Comfort feeding was recommended. The patient's son agreed to hospice care upon return to home. She was eventually discharged home with hospice. FINAL DIAGNOSES: 1. Acute kidney injury with acute tubular necrosis. 2. Hypertension. 3. Advanced dementia. 4. Schizoaffective psychosis. 5. Severe protein-calorie malnutrition. 6. Agitation. 7. Acute encephalopathy. 8. Underlying chronic kidney disease. 9. Anemia. 10. Hypertension. 11. Status post pacemaker. 12. Sacrococcygeal unstageable pressure ulcer, chemical burn on perineal area, present on admission. DISPOSITION: The patient was discharged home with hospice. DISCHARGE MEDICATIONS: Continue with Risperdal 1 mg at bedtime. Leona Yarbrough M.D. I have been assigned to dictate discharge summary on this account and I was not involved in the patient's management. Caitlyn Rousseau N.P. DR: BRYN JOB#: [id number] CC:
== END 2017-09-20 19:30 | disposition hospice, home (50) | DRG 682 ==
LOC: EMR 15:15 → 4E 15:19 → EDBEDREQ 16:20 → 4E 19:47
DX: N17.0 Acute kidney failure with tubular necrosis (principal); E43 Unspecified severe protein-calorie malnutrition; L89.150 Pressure ulcer of sacral region, unstageable; G93.40 Encephalopathy, unspecified; E86.0 Dehydration; F03.90 Unspecified dementia, unspecified severity, without behavioral disturbance, psychotic disturbance, mood disturbance, and anxiety; D64.9 Anemia, unspecified; Z68.22 Body mass index [BMI] 22.0-22.9, adult; F25.9 Schizoaffective disorder, unspecified; I12.9 Hypertensive chronic kidney disease with stage 1 through stage 4 chronic kidney disease, or unspecified chronic kidney disease; N18.9 Chronic kidney disease, unspecified; Z95.0 Presence of cardiac pacemaker
CPT/HCPCS: 36415; 71010; 74230; 76775; 80053; 80061; 81001; 81003; 82436; 82533; 82550; 82553; 82607; 82728; 82746; 82977; 83036; 83540; 83550; 83615; 83735; 83880; 83930; 83935; 84100; 84133; 84300; 84439; 84443; 84481; 84484; 84550; 85007; 85025; 85044; 85060; 85610; 85651; 85730; 86140; 87070; 87181; 87205; 89050; 93005; 93306; 99285